=== PATIENT | female | born 1990 | race American Indian/Alaskan Native ===

== ENCOUNTER 2019-02-23 09:26 | Emergency (ER) | payer SELFPAY ==
[2019-02-23 09:51] VITALS: BP 128/69
[2019-02-23 11:32] LABS: Bilirubin,Urine NEG (Negative); Blood,Urine MOD (Negative); Color,Urine Yellow (Yellow); Mucus,Urine 2+ /HPF; Protein,Urine <15 mg/dL mg/dL (Negative); Urobilinogen,Urine < 2.0 mg/dL (<2.0)
[2019-02-23 11:36] LABS: HCG Qualitative,Urine Negative (Negative)
--- NOTE | 2019-02-23 11:58 | Emergency Department Report ---
ED Female HPI - General Chief complaint: Vaginal Bleeding Stated complaint: SPOTTING AFTER PERIOD Time Seen by Provider: 02/23/19 11:39 Source: patient Mode of arrival: Ambulatory Limitations: No Limitations - History of Present Illness Initial comments: 28-year-old -[place] female presents to the emergency room complaining of vaginal spotting. Patient states that she uses he has irregular periods. Patient states that sometimes she'll have to periods in one month. Patient states that her period started on 02/16/1990 February 19 and now she started bleeding yesterday. Patient denies any abdominal pain no pelvic pain or vaginal discharge no nausea no vomiting. MD Complaint: vaginal bleeding Onset/Timin -: days(s) - Related Data Allergies Allergy/AdvReac Type Severity Reaction Status Date / Time No Known Allergies Allergy Verified 02/23/19 09:32 ED Review of Systems ROS: Stated complaint: SPOTTING AFTER PERIOD Other details as noted in HPI ED Past Medical Hx - Past Medical History Previous Medical History?: No - Surgical History Past Surgical History?: No - Social History Smoking Status: Never Smoker Substance Use Type: None ED Physical Exam - General Limitations: No Limitations General appearance: alert, in no apparent distress - Head Head exam: Present: atraumatic, normocephalic - Eye Eye exam: Present: normal appearance - ENT ENT exam: Present: mucous membranes moist - Neck Neck exam: Present: normal inspection, full ROM - Neurological Exam Neurological exam: Present: alert, oriented X3, normal gait - Psychiatric Psychiatric exam: Present: normal affect, normal mood - Skin Skin exam: Present: warm, dry, intact, normal color. Absent: rash ED Course Vital Signs 02/23/19 09:50 Temperature 98.4 F Pulse Rate 63 Respiratory 16 Rate Blood Pressure 128/69 O2 Sat by Pulse 97 Oximetry ED Medical Decision Making - Medical Decision Making 28-year-old -[place] female presents to the emergency room complaining of vaginal spotting. Patient states that she uses he has irregular periods. Patient states that sometimes she'll have to periods in one month. Patient s tates that her period started on 02/16/1990 February 19 and now she started bleeding yesterday. Patient denies any abdominal pain no pelvic pain or vaginal discharge no nausea no vomiting. test is negative urinalysis is negative for any acute infection. Discussed the patient she needs to follow-up with [facility]. Critical care attestation.: If time is entered above; I have spent that time in minutes in the direct care of this critically ill patient, excluding procedure time. ED Disposition Clinical Impression: Vaginal spotting Disposition: TO HOME OR SELFCARE Is pt being admited?: No Does the pt Need Aspirin: No Condition: Stable Instructions: Menstruation (ED) Additional Instructions: Follow-up with an [facility] provider. Referrals: [facility] [Provider Group] - 3-5 Days
== END 2019-02-23 12:13 | disposition home or self-care (01) ==
LOC: ED 09:26
DX: N93.9 Abnormal uterine and vaginal bleeding, unspecified (principal)
CPT/HCPCS: 81001; 81025